=== PATIENT | female | born 1950 | race Two or more races ===

== ENCOUNTER 2024-12-03 15:32 | Emergency (ER) | payer OTHER ==
[~2024-12-03] VITALS: Ht 152.4 cm; Wt 44.9 kg
[2024-12-03 15:55] VITALS: BP 120/65; O2SAT 100
[2024-12-03] MEDS ORDERED: CHOLESTYRAMINE/ASPARTAME LIGHT 4 G/PKT PACKET PO ONE (16:45)
[2024-12-03] MEDS ORDERED: PANTOPRAZOLE SODIUM 40 MG/VIAL VIAL IV ONE (16:45)
[2024-12-03] MEDS ORDERED: 0.9 % SODIUM CHLORIDE 500 ML IV ONE (16:45)
[2024-12-03 17:53] LABS: HEMATOCRIT 26.7 % (36.0-45.00); MEAN CELL VOLUME 80.1 fL (80.00-100.00); PLATELET COUNT 247 K/uL (150-450); RED BLOOD COUNT 3.33 M/uL (4.00-6.00); RED CELL DISTRIBUTION WIDTH 15.2 % (11.5-14.5)
[2024-12-03 18:01] LABS: HEMOGLOBIN 8.8 g/dL (12.0-15.00); MEAN CORPUSCULAR HEMOGLOBIN 26.4 pg (27.00-32.0)
[2024-12-03 18:03] LABS: COVID-19 AG NEGATIVE (NEGATIVE)
[2024-12-03 18:09] LABS: ALBUMIN 2.8 gm/dL (3.4-5.0); BILIRUBIN TOTAL 0.19 mg/dL (0.3-1.2); CREATININE SERUM 0.68 mg/dL (0.55-1.02); GFR 85.29; GLOBULINA 4.1 G/DL (2.4-3.5); POTASSIUM 3.67 mEq/L (3.5-5.1); TOTAL PROTEIN 6.9 gm/dL (6.4-8.2)
[2024-12-03 18:10] LABS: INFLUENZA A AG NEGATIVE (NEGATIVE)
[2024-12-03] MEDS ORDERED: PROBIOTIC1 EAC2 PO (18:55)
[2024-12-03] MEDS ORDERED: METRONIDAZOLE500 MG PO (18:55)
[2024-12-03] MEDS ORDERED: CIPRO500 MG PO (18:55)
[2024-12-03] MEDS ORDERED: PROTONIX40 MG PO (18:55)
== END 2024-12-03 19:39 | disposition home or self-care (01) ==
LOC: ER 15:33
PROVIDERS: General Practice
DX: R19.7 Diarrhea, unspecified (principal); Z20.822 Contact with and (suspected) exposure to COVID-19; Z88.0 Allergy status to penicillin; Z88.2 Allergy status to sulfonamides; Z91.013 Allergy to seafood; Z91.041 Radiographic dye allergy status
CPT/HCPCS: 36415; 96365; 99282; J3490; J7042